=== PATIENT | female | born 1995 | race Two or more races ===

== ENCOUNTER 2018-11-07 13:29 | Emergency (ER) | payer MEDICAID ==
[2018-11-07] MEDS ORDERED: NS 1,000 ML IV ONE (14:17)
--- NOTE | 2018-11-07 14:23 | EDPHY ---
HPI/HX/ROS/PE/MDM Narrative: CHIEF COMPLAINT: Four weeks , vaginal bleeding HPI: This patient is a 23 y/o female who is , currently about four weeks . She arrives with her family complaining of vaginal bleeding. Her last menstrual cycle was 09/27/18. She took two home tests and one at [facility] which were positive. Yesterday,she noted light vaginal bleeding and some pelvic discomfort. On , she had some sharp left-sided lower abdominal pain, but this has resolved. This morning went to the restroom and noted continued bleeding so presents for evaluation. She is scheduled for an ultrasound in two weeks, and for a follow up appointment at [facility] tomorrow. She has had a normal prior . She denies any known clotting disorders. No chest pain, shortness of breath, vomiting, diarrhea, syncope, or other associated symptoms. REVIEW OF SYSTEMS: A comprehensive 10 system review of systems is otherwise negative aside from elements mentioned in the history of present illness and medical decision making. PMH: . SOCIAL HISTORY: Family at bedside. Lives in [place]. Does not abuse tobacco, drugs, or alcohol. PHYSICAL EXAM: General:Patient is alert, in no acute distress. ENT:Eyes are normal to inspection. ENT inspection normal. Neck: Normal inspection. Full range of motion. Respiratory:No respiratory distress. Breath sounds normal bilaterally. Cardiovascular: Regular rate and rhythm. Strong peripheral pulses. Normal cap refill. Abdomen:The abdomen is nontender to palpation. There are no peritoneal signs. There are normal bowel sounds. Back: Normal to inspection. No tenderness to palpation. Skin: Normal color. No rash. Warm and dry. Extremities: Normal appearance. Full range of motion. Neuro: Oriented x3. Normal motor function. Normal sensory function. ED Course: 23 y/o female who is about one month presents with vaginal bleeding and intermittent pelvic/LLQ discomfort. Abdomen is benign on exam. Plan for obstetrics US to r/o ectopic . Plan for labs including CBC, chemistries , BHCG quant, ABO/Rh type. US indicates IUP with no evidence of ectopic or subchorionic hemorrhage. Patient stable. Rh + so no need for Rhogam. Patient comfortable with following up with OBGYN this week. We discussed strict return precautions as well as possibility of SAB. - Data Points Imaging: Discussed imaging studies w/ scallop cutter Radiologist Laboratory Results: Laboratory Results 11/07/18 14:29 11/07/18 14:29 11/07/18 11/07/18 11/07/18 14:29 14:29 14:29 WBC 7.48 10^3/uL 10^3/uL (3.80-9.50) RBC 4.49 10^6/uL 10^6/uL (4.18-5.33) Hgb 13.8 g/dL g/dL (12.6-16.3) Hct 40.4 % % (38.0-47.0) MCV 90.0 fL fL (81.5-99.8) MCH 30.7 pg pg (27.9-34.1) MCHC 34.2 g/dL g/dL (32.4-36.7) RDW 12.7 % % (11.5-15.2) Plt Count 291 10^3/uL 10^3/uL (150-400) MPV 9.7 fL fL (8.7-11.7) Neut % (Auto) 70.2 % % (39.3-74.2) Lymph % (Auto) 23.8 % % (15.0-45.0) [place] % (Auto) 5.1 % % (4.5-13.0) Eos % (Auto) 0.3 % L % (0.6-7.6) Baso % (Auto) 0.3 % % (0.3-1.7) Nucleat RBC Rel Count 0.0 % % (0.0-0.2) Absolute Neuts (auto) 5.26 10^3/uL 10^3/uL (1.70-6.50) Absolute Lymphs (auto) 1.78 10^3/uL 10^3/uL (1.00-3.00) Absolute Monos (auto) 0.38 10^3/uL 10^3/uL (0.30-0.80) Absolute Eos (auto) 0.02 10^3/uL L 10^3/uL (0.03-0.40) Absolute Basos (auto) 0.02 10^3/uL 10^3/uL (0.02-0.10) Absolute Nucleated RBC 0.00 10^3/uL 10^3/uL (0-0.01) Immature Gran % 0.3 % % (0.0-1.1) Immature Gran # 0.02 10^3/uL 10^3/uL (0.00-0.10) Sodium 139 mEq/L mEq/L (135-145) Potassium 3.8 mEq/L mEq/L (3.5-5.2) Chloride 102 mEq/L mEq/L (97-110) Carbon Dioxide 25 mEq/l mEq/l (22-31) Anion Gap 12 mEq/L mEq/L (6-14) BUN 9 mg/dL mg/dL (7-23) Creatinine 0.6 mg/dL mg/dL (0.6-1.0) Estimated GFR > 60 Glucose 91 mg/dL mg/dL (70-100) Calcium 9.3 mg/dL mg/dL (8.5-10.4) Beta HCG, Quant Pending Patient ABO/Rh A POSITIVE Medications Given: Discontinued Medications Sodium Chloride (Ns) 1,000 mls @ 0 mls/hr IV ONCE ONE; Wide Open PRN Reason: Protocol Stop: 11/07/18 14:18 Last Admin: 11/07/18 14:59 Dose: 1,000 mls General Time Seen by Provider: 11/07/18 14:18 Initial Vital Signs: Initial Vital Signs Temperature (C) 37.2 C 11/07/18 13:34 Heart Rate 84 11/07/18 13:34 Respiratory Rate 17 11/07/18 13:34 Blood Pressure 105/67 11/07/18 13:34 O2 Sat (%) 98 11/07/18 13:34 O2 Delivery Mode Room Air Allergies/Adverse Reactions: amoxicillin Allergy (Verified 11/07/18 13:34) Home Medications: Medication Instructions Recorded NK [No Known Home Meds] 11/07/18 Departure - Departure Disposition: Home, Routine, Self-Care Clinical Impression: Threatened miscarriage Condition: Good Instructions: Threatened Miscarriage (ED) Additional Instructions: Follow-up with your OBGYN or PCP within 72 hours for re-evaluation. Return to the ED for fever, abdominal pain, worsening bleeding or other concerns. Referrals: Stephanie Mcduffie PA [Primary Care Provider] - As per Instructions Report Scribed for: Rudi Noble Report Scribed by: Dulce Lewis Date of Report: 11/07/18 Time of Report: 15:02 Physician Review and Approval Statement: Portions of this note were transcribed by an ED scribe. I personally performed the history, physical exam, and medical decision making; and confirm the accuracy of the information in the transcribed note.
[2018-11-07 14:42] LABS: PLATELET COUNT 291 10^3/uL (150-400)
[2018-11-07 15:27] VITALS: BP 122/70
== END 2018-11-07 15:27 | disposition home or self-care (01) ==
DX: O20.0 Threatened abortion (principal); O99.281 Endocrine, nutritional and metabolic diseases complicating pregnancy, first trimester; E86.9 Volume depletion, unspecified; Z3A.01 Less than 8 weeks gestation of pregnancy

== ENCOUNTER 2018-11-25 13:44 | Emergency (ER) | payer MEDICAID | END 2018-11-25 14:56 | disposition home or self-care (01) | DX: O20.0 Threatened abortion (principal); Z3A.01 Less than 8 weeks gestation of pregnancy ==